=== PATIENT | male | born 1960 | race Caucasian/White ===

== ENCOUNTER 2017-01-02 10:06 | Inpatient (IN) | payer MEDICARE, OTHER ==
[2017-01-02 11:43] LABS: HEMOGLOBIN 14.2 gm/dl (14.0-17.5); RED BLOOD COUNT 4.34 M/UL (4.20-5.50); WHITE BLOOD COUNT 11.6 K/UL (4.5-11.0)
[2017-01-02 12:04] LABS: BUN/CREATININE RATIO 18 (0-10)
[2017-01-02] MEDS ORDERED: VITAMIN D31000 UNIT PO (18:06)
[2017-01-02] MEDS ORDERED: ZETIA10 MG PO (18:06)
[2017-01-02] MEDS ORDERED: MIRALAX17 GM PO (18:07)
[2017-01-02] MEDS ORDERED: PRILOSEC OTC20 MG PO (18:07)
[2017-01-02] MEDS ORDERED: CLARITIN5 MG/5 ML PO (18:08)
[2017-01-02] MEDS ORDERED: LOVASTATIN40 MG PO (18:08)
[2017-01-02] MEDS ORDERED: SYNTHROID50 MCG PO (18:09)
[2017-01-02] MEDS ORDERED: SINEMET 25-1001 EACH PO (18:09)
[2017-01-02] MEDS ORDERED: AMITIZA24 MCG PO (18:10)
[2017-01-02] MEDS ORDERED: [UNRECOGNIZED DRUG - OTHER] (18:11)
[2017-01-02] MEDS ORDERED: MOBIC7.5 MG PO (18:11)
[2017-01-02] MEDS ORDERED: MAGNESIUM CITR296 ML PO (18:12)
[2017-01-02] MEDS ORDERED: DEPAKENE S250 MG/5 M PO (18:13)
[2017-01-02] MEDS ORDERED: VIMPAT10 MG/1 ML PO (18:13)
[2017-01-02] MEDS ORDERED: KLONOPIN TAB 00.5 MG PO (18:14)
[2017-01-02] MEDS ORDERED: MYSOLINE250 MG PO (18:14)
[2017-01-02] MEDS ORDERED: TRAZODONE HCL100 MG PO (18:15)
[2017-01-02] MEDS ORDERED: GEODON60 MG PO (18:15)
[2017-01-02] MEDS ORDERED: PEPTO-BISM262 MG/15 PO (18:16)
[2017-01-02] MEDS ORDERED: NIZORAL 2% SHA120 ML EXT (18:16)
[2017-01-02] MEDS ORDERED: TYLENOL 325MG325 MG PO (18:17)
[2017-01-02 19:04] LABS: HEMOGLOBIN 12.5 gm/dl (14.0-17.5); WHITE BLOOD COUNT 11.6 K/UL (4.5-11.0)
[2017-01-02 19:06] LABS: RED BLOOD COUNT 3.85 M/UL (4.20-5.50)
[2017-01-02 19:24] LABS: BUN/CREATININE RATIO 20 (0-10)
[2017-01-03 05:10] LABS: HEMOGLOBIN 12.1 gm/dl (14.0-17.5); RED BLOOD COUNT 3.82 M/UL (4.20-5.50); WHITE BLOOD COUNT 9.7 K/UL (4.5-11.0)
[2017-01-03 05:30] LABS: BUN/CREATININE RATIO 14 (0-10)
[2017-01-04 07:12] LABS: HEMOGLOBIN 12.7 gm/dl (14.0-17.5); RED BLOOD COUNT 3.93 M/UL (4.20-5.50); WHITE BLOOD COUNT 8.3 K/UL (4.5-11.0)
[2017-01-04 07:50] LABS: BUN/CREATININE RATIO 13 (0-10)
[2017-01-05 08:23] LABS: HEMOGLOBIN 13.5 gm/dl (14.0-17.5); RED BLOOD COUNT 4.18 M/UL (4.20-5.50); WHITE BLOOD COUNT 8.1 K/UL (4.5-11.0)
[2017-01-05 08:42] LABS: BUN/CREATININE RATIO 17 (0-10)
[2017-01-06 07:00] LABS: HEMOGLOBIN 12.4 gm/dl (14.0-17.5); RED BLOOD COUNT 3.82 M/UL (4.20-5.50)
[2017-01-06 07:01] LABS: WHITE BLOOD COUNT 5.5 K/UL (4.5-11.0)
[2017-01-06 07:24] LABS: BUN/CREATININE RATIO 22 (0-10)
[2017-01-06] MEDS ORDERED: CEFTIN250 MG/5 M PO (14:15)
[2017-01-06] MEDS ORDERED: CEFUROXIME500 MG PO (14:42)
== END 2017-01-06 15:42 | disposition home or self-care (01) | DRG 871 ==
LOC: ER1 10:06 → ZEROF 13:35 → M/S 13:35 → CCU 18:13 → M/S 01-03 15:31
PROVIDERS: Emergency Medicine; ADMIT Internal Medicine Infectious Disease
DX: A41.9 Sepsis, unspecified organism (principal); G92 Toxic encephalopathy; N17.9 Acute kidney failure, unspecified; S37.39XA Other injury of urethra, initial encounter; J10.1 Influenza due to other identified influenza virus with other respiratory manifestations; F79 Unspecified intellectual disabilities; T42.4X5A Adverse effect of benzodiazepines, initial encounter; Y92.009 Unspecified place in unspecified non-institutional (private) residence as the place of occurrence of the external cause; G40.909 Epilepsy, unspecified, not intractable, without status epilepticus; E86.0 Dehydration; R09.02 Hypoxemia; J32.9 Chronic sinusitis, unspecified; E03.9 Hypothyroidism, unspecified; X58.XXXA Exposure to other specified factors, initial encounter; Y93.89 Activity, other specified; Y92.230 Patient room in hospital as the place of occurrence of the external cause; E87.6 Hypokalemia; Z88.2 Allergy status to sulfonamides; Z79.1 Long term (current) use of non-steroidal anti-inflammatories (NSAID); Z79.899 Other long term (current) drug therapy; L72.8 Other follicular cysts of the skin and subcutaneous tissue; B96.89 Other specified bacterial agents as the cause of diseases classified elsewhere; F99 Mental disorder, not otherwise specified
CPT/HCPCS: 36415; 36600; 70450; 71010; 80048; 80053; 80202; 80307; 81001; 82550; 82553; 82803; 82962; 83605; 83874; 83880; 84484; 85025; 85027; 85610; 87040; 87070; 87077; 87205; 93005; 94640; 94664; 96365; 96366; 96367; 99285; J0696; J1630; J1650; J2543; J2930; J3370; J3486; J7050; J7070

== ENCOUNTER 2017-01-26 11:02 | Inpatient (IN) | payer MEDICARE, OTHER ==
[~2017-01-26] VITALS: Ht 167.6 cm; Wt 69.9 kg
[~2017-01-26 11:02] MED LIST: AMITIZA24 MCG PO; CEFTIN250 MG/5 M PO; CEFUROXIME500 MG PO; CLARITIN5 MG/5 ML PO; DEPAKENE S250 MG/5 M PO; GEODON60 MG PO; KLONOPIN TAB 00.5 MG PO; LOVASTATIN40 MG PO; MAGNESIUM CITR296 ML PO; MIRALAX17 GM PO; MOBIC7.5 MG PO; MYSOLINE250 MG PO; NIZORAL 2% SHA120 ML EXT; PEPTO-BISM262 MG/15 PO; PRILOSEC OTC20 MG PO; SINEMET 25-1001 EACH PO; SYNTHROID50 MCG PO; TRAZODONE HCL100 MG PO; TYLENOL 325MG325 MG PO; VIMPAT10 MG/1 ML PO; VITAMIN D31000 UNIT PO; ZETIA10 MG PO; [UNRECOGNIZED DRUG - OTHER]
[2017-01-26 14:29] LABS: RED BLOOD COUNT 4.06 M/UL (4.20-5.50)
[2017-01-26 14:45] LABS: BUN/CREATININE RATIO 27 (0-10)
[2017-01-27] MEDS ORDERED: NORCO 5-325 TA1 EACH PO (08:09)
[2017-01-29 06:12] LABS: HEMOGLOBIN 11.2 gm/dl (14.0-17.5)
[2017-01-29 06:25] LABS: RED BLOOD COUNT 3.51 M/UL (4.20-5.50); WHITE BLOOD COUNT 19.9 K/UL (4.5-11.0)
[2017-01-29 06:26] LABS: BUN/CREATININE RATIO 22 (0-10)
[2017-01-30 05:24] LABS: HEMOGLOBIN 11.6 gm/dl (14.0-17.5); RED BLOOD COUNT 3.63 M/UL (4.20-5.50); WHITE BLOOD COUNT 11.9 K/UL (4.5-11.0)
[2017-01-30 05:47] LABS: BUN/CREATININE RATIO 16 (0-10)
[2017-02-05 07:11] LABS: HEMOGLOBIN 12.4 gm/dl (14.0-17.5); RED BLOOD COUNT 3.9 M/UL (4.20-5.50); WHITE BLOOD COUNT 5.1 K/UL (4.5-11.0)
[2017-02-05 07:17] LABS: BUN/CREATININE RATIO 20 (0-10)
== END 2017-02-09 02:07 | DRG 871 ==
LOC: ER1 11:02 → MED SURG 4 21:50 → ZEROF 21:50 → MED SURG 4 01-27 06:31
PROVIDERS: Internal Medicine; Physician Assistant; Specialist/Technologist Athletic Trainer; ADMIT Internal Medicine
DX: A41.51 Sepsis due to Escherichia coli [E. coli] (principal); G93.40 Encephalopathy, unspecified; L03.313 Cellulitis of chest wall; H66.92 Otitis media, unspecified, left ear; G40.409 Other generalized epilepsy and epileptic syndromes, not intractable, without status epilepticus; A49.02 Methicillin resistant Staphylococcus aureus infection, unspecified site; F79 Unspecified intellectual disabilities; E78.5 Hyperlipidemia, unspecified; K21.9 Gastro-esophageal reflux disease without esophagitis; E03.9 Hypothyroidism, unspecified; F91.9 Conduct disorder, unspecified; J30.9 Allergic rhinitis, unspecified; Z98.890 Other specified postprocedural states; Z88.2 Allergy status to sulfonamides; Z79.899 Other long term (current) drug therapy; Z79.1 Long term (current) use of non-steroidal anti-inflammatories (NSAID)
CPT/HCPCS: 36415; 36600; 70450; 70551; 71010; 80048; 80053; 80307; 81001; 82140; 82150; 82550; 82553; 82607; 82803; 83605; 83690; 83874; 84439; 84443; 84484; 85025; 85027; 87040; 87070; 87077; 87086; 87186; 87205; 92526; 92610; 93005; 95816; 96360; 97530; 99285; G0378; G0480; J0696; J1335; J1956; J2060; J2543; J7030; J7050

== ENCOUNTER 2017-02-17 17:37 | Inpatient (IN) | payer MEDICARE, OTHER ==
[~2017-02-17] VITALS: Ht 170.2 cm; Wt 63.5 kg
[~2017-02-17 17:37] MED LIST changes: +NORCO 5-325 TA1 EACH PO
[2017-02-17 18:50] LABS: HEMOGLOBIN 12.7 gm/dl (14.0-17.5); RED BLOOD COUNT 3.97 M/UL (4.20-5.50)
[2017-02-17 19:06] LABS: BUN/CREATININE RATIO 16 (0-10)
[2017-02-18] MEDS ORDERED: VITAMIN D32000 UNI1 PO (01:24)
[2017-02-18] MEDS ORDERED: [UNRECOGNIZED DRUG - CODE] DT (01:27)
[2017-02-18] MEDS ORDERED: PRIMIDONE250 MG PO ×2 (01:29→01:30)
[2017-02-18] MEDS ORDERED: GEODON60 MG PO (01:31)
[2017-02-18] MEDS ORDERED: TRAZODONE HCL100 MG PO (01:32)
[2017-02-18] MEDS ORDERED: NIZORAL 2% CREA15 GM EXT (01:34)
[2017-02-18] MEDS ORDERED: PEPTO-BISM262 MG/15 PO (01:35)
[2017-02-18 13:13] LABS: BUN/CREATININE RATIO 20 (0-10)
[2017-02-19 07:39] LABS: HEMOGLOBIN 12.2 gm/dl (14.0-17.5); RED BLOOD COUNT 3.93 M/UL (4.20-5.50)
[2017-02-19 07:49] LABS: WHITE BLOOD COUNT 4.3 K/UL (4.5-11.0)
[2017-02-19 07:56] LABS: BUN/CREATININE RATIO 20 (0-10)
--- NOTE | 2017-02-20 19:39 | NUR ---
02/20/17 @ 1330 PT UP IN HALLWAY. UNSTEADY GAIT NOTED. PT COMBATIVE WITH NURSING STAFF. MD PRESENT AND AWARE. PT TAKEN BACK TO ROOM BY NSG STAFF AND PT 02/20/17 @ 1350 ATIVAN 2MG GIVEN IV. 02/20/17 @ 1640 PT REMAINS COMBATIVE. MD AWARE. GEODON 10MG GIVEN IM PER MD ORDER. 02/20/17 @ 1730 PT RESTING QUIETLY IN BED. CONTINUES TO SCREAM OUT AT TIMES BUT MUCH CALMER AND NO LONGER COMBATIVE
[2017-02-22 07:11] LABS: HEMOGLOBIN 13.3 gm/dl (14.0-17.5); RED BLOOD COUNT 4.1 M/UL (4.20-5.50); WHITE BLOOD COUNT 5.1 K/UL (4.5-11.0)
[2017-02-22 07:32] LABS: BUN/CREATININE RATIO 18 (0-10)
[2017-02-28 06:43] LABS: HEMOGLOBIN 13.2 gm/dl (14.0-17.5); RED BLOOD COUNT 4.1 M/UL (4.20-5.50)
[2017-02-28 06:55] LABS: BUN/CREATININE RATIO 22 (0-10)
[2017-03-09 06:35] LABS: HEMOGLOBIN 12.5 gm/dl (14.0-17.5); RED BLOOD COUNT 3.86 M/UL (4.20-5.50); WHITE BLOOD COUNT 5.7 K/UL (4.5-11.0)
[2017-03-09 07:05] LABS: BUN/CREATININE RATIO 21 (0-10)
--- NOTE | 2017-03-15 00:46 | NUR ---
03-14-2017 1900 PATIENT REFUSES TO WEAR CATERPILLAR OPERATOR OR PULSE OX MONITOR. ALREADY AWARE.
--- NOTE | 2017-03-21 14:41 | NUR ---
CALLED AND NOTIFIED SANIYA SAWYER BROTHER WHICH IS HIS NEXT OF DAYAN, KARI SAWYER ON 03/21/2017 AT 1441. KARI SAWYER [address] [facility] [address] PHONE [phone]. NOTIED KARI SAWEYR OF SANIYA SAWYER REQUESTING A HAIR CUT AND THAT HE IS PULLING IS HAIR OUT. KARI SAWYER STATES THAT IF SANIYA DOES NOT GET HIS HAIR CUT SHORT THAT HE WILL PULL AND PICK UNTIL IT IS CUT. CONSENT GIVEN FOR [facility] STAFF TO CUT SANIYA SAWYER HAIR SHORT AND TO GIVE HIME A SHAVE. CARLOS CUMMINGS RN
[2017-03-26 05:49] LABS: HEMOGLOBIN 12.5 gm/dl (14.0-17.5); RED BLOOD COUNT 3.91 M/UL (4.20-5.50); WHITE BLOOD COUNT 6.7 K/UL (4.5-11.0)
[2017-03-26 06:10] LABS: BUN/CREATININE RATIO 23 (0-10)
== END 2017-03-30 13:43 | disposition home or self-care (01) | DRG 101 ==
LOC: ER1 17:37 → M/S 20:55 → ZEROF 20:55 → M/S 02-18 01:31 → MED SURG 4 02-19 14:18 → M/S 02-23 18:00
PROVIDERS: Family Medicine; Internal Medicine; Physician Assistant; ADMIT Hospitalist
DX: G40.901 Epilepsy, unspecified, not intractable, with status epilepticus (principal); F73 Profound intellectual disabilities; E87.2 Acidosis; R47.01 Aphasia; F34.9 Persistent mood [affective] disorder, unspecified; R78.81 Bacteremia; F91.8 Other conduct disorders; R45.6 Violent behavior; Z91.14 Patient's other noncompliance with medication regimen; E03.9 Hypothyroidism, unspecified; K21.9 Gastro-esophageal reflux disease without esophagitis; E78.5 Hyperlipidemia, unspecified; Z86.14 Personal history of Methicillin resistant Staphylococcus aureus infection; Z79.899 Other long term (current) drug therapy; Z88.2 Allergy status to sulfonamides; Z79.891 Long term (current) use of opiate analgesic
CPT/HCPCS: 36415; 71010; 80048; 80053; 80076; 80184; 80188; 80299; 82962; 83605; 85025; 85027; 87040; 96374; 96375; 99285; G0378; G0480; J2060; J2250; J3486; J7050

== ENCOUNTER 2021-08-02 23:06 | Emergency (ER) | payer MEDICARE, OTHER ==
[~2021-08-02 23:06] MED LIST changes: +ADVIL200 MG PO; +AUGMENTIN600 MG/5 M PO; -DEPAKENE S250 MG/5 M PO; +DEPAKOTE500 MG PO; +DOXYCYCLINE HY100 MG PO; +GEODON40 MG PO; +IMODIUM CAP 2 MG2 MG PO; +LINZESS145 MCG PO; +MACROBID 100 M100 MG PO; +MILK OF MAGNESI30 ML PO; +NIZORAL 2% CREA15 GM EXT; +OMNICEF 300 MG300 MG PO; +PRIMIDONE250 MG PO; +TAMIFLU 75 MG C75 MG GT; +TESSALON PERLE100 MG PO; +VITAMIN D32000 UNI1 PO; +ZOFRAN4 MG PO; +[UNRECOGNIZED DRUG - CODE] DT
[2021-08-03 02:43] LABS: HEMOGLOBIN 13.7 gm/dl (14.0-17.5); RED BLOOD COUNT 4.21 M/UL (4.20-5.50); WHITE BLOOD COUNT 6.6 K/UL (4.5-11.0)
[2021-08-03 03:08] LABS: BUN/CREATININE RATIO 17 (0-10)
== END 2021-08-03 06:35 | disposition home or self-care (01) ==
LOC: ER1 23:06
PROVIDERS: Family Medicine
DX: F84.0 Autistic disorder (principal); Z72.4 Inappropriate diet and eating habits; Z20.822 Contact with and (suspected) exposure to COVID-19
CPT/HCPCS: 51702; 71045; 80053; 81001; 84439; 84443; 85025; 87086; 99283; U0002

== ENCOUNTER 2022-05-07 11:50 | Emergency (ER) | payer MEDICARE, OTHER ==
[2022-05-07 13:18] LABS: HEMOGLOBIN 14.2 gm/dl (14.0-17.5); RED BLOOD COUNT 4.51 M/UL (4.20-5.50); WHITE BLOOD COUNT 9.3 K/UL (4.5-11.0)
[2022-05-07 13:40] LABS: BUN/CREATININE RATIO 41 (0-10)
== END 2022-05-07 20:30 | disposition home or self-care (01) ==
LOC: ER1 11:50
DX: R53.1 Weakness (principal); I11.9 Hypertensive heart disease without heart failure; Z88.2 Allergy status to sulfonamides
CPT/HCPCS: 71045; 80053; 81001; 85025; 99285; Q9967

== ENCOUNTER 2022-05-14 18:05 | Inpatient (IN) | payer MEDICARE, OTHER ==
[~2022-05-14] VITALS: Ht 172.7 cm; Wt 61.3 kg
[~2022-05-14 18:05] MED LIST changes: +TRAZODONE HCL150 MG PO; -VITAMIN D32000 UNI1 PO; +VITAMIN D350 MCG PO
[2022-05-14 18:43] LABS: HEMOGLOBIN 14.4 gm/dl (14.0-17.5); RED BLOOD COUNT 4.41 M/UL (4.20-5.50); WHITE BLOOD COUNT 15.3 K/UL (4.5-11.0)
[2022-05-14 19:31] LABS: BUN/CREATININE RATIO 46 (0-10)
[2022-05-15 07:31] LABS: HEMOGLOBIN 12.2 gm/dl (14.0-17.5); RED BLOOD COUNT 3.9 M/UL (4.20-5.50); WHITE BLOOD COUNT 9.5 K/UL (4.5-11.0)
[2022-05-15 08:04] LABS: BUN/CREATININE RATIO 50 (0-10)
[2022-05-15] MEDS ORDERED: VIMPAT150 MG PO (11:02)
[2022-05-15] MEDS ORDERED: FUROSEMIDE40 MG PO (11:02)
[2022-05-15] MEDS ORDERED: POTASSIUM CHLO10 ME2 PO (11:02)
[2022-05-15] MEDS ORDERED: CETIRIZINE HCL10 MG PO (11:03)
--- NOTE | 2022-05-15 14:00 | NUR ---
ICE CREAM MIXER ATTEMPTED TO DO AN MRI, STUDY WAS UNSUCCESSFUL, PT NOT TOLERATING LYING STILL, TECH REPORTED PT WAS MOVING AND YELLING
[2022-05-16 03:16] LABS: HEMOGLOBIN 11.7 gm/dl (14.0-17.5); RED BLOOD COUNT 3.66 M/UL (4.20-5.50)
[2022-05-16 03:35] LABS: BUN/CREATININE RATIO 31 (0-10)
[2022-05-17 03:56] LABS: RED BLOOD COUNT 3.71 M/UL (4.20-5.50); WHITE BLOOD COUNT 11.5 K/UL (4.5-11.0)
[2022-05-17 04:23] LABS: BUN/CREATININE RATIO 27 (0-10)
[2022-05-18 04:41] LABS: HEMOGLOBIN 10.7 gm/dl (14.0-17.5); RED BLOOD COUNT 3.33 M/UL (4.20-5.50); WHITE BLOOD COUNT 8.5 K/UL (4.5-11.0)
[2022-05-18 05:11] LABS: BUN/CREATININE RATIO 20 (0-10)
[2022-05-19 07:00] LABS: HEMOGLOBIN 11.1 gm/dl (14.0-17.5); RED BLOOD COUNT 3.46 M/UL (4.20-5.50); WHITE BLOOD COUNT 8.9 K/UL (4.5-11.0)
[2022-05-19 07:29] LABS: BUN/CREATININE RATIO 19 (0-10)
[2022-05-20 05:03] LABS: BUN/CREATININE RATIO 12 (0-10)
[2022-05-20 05:04] LABS: HEMOGLOBIN 9.6 gm/dl (14.0-17.5)
[2022-05-20 05:12] LABS: WHITE BLOOD COUNT 6.1 K/UL (4.5-11.0)
[2022-05-20 05:13] LABS: RED BLOOD COUNT 3.05 M/UL (4.20-5.50)
[2022-05-20 10:14] LABS: PRIMIDONE, SERUM 5.6 ug/mL (5.0-12.0)
[2022-05-22 02:25] LABS: HEMOGLOBIN 10.4 gm/dl (14.0-17.5); RED BLOOD COUNT 3.26 M/UL (4.20-5.50)
[2022-05-22 02:34] LABS: WHITE BLOOD COUNT 7.8 K/UL (4.5-11.0)
[2022-05-22 03:34] LABS: BUN/CREATININE RATIO 13 (0-10)
--- NOTE | 2022-05-23 14:21 | NUR ---
[facility] CATH REMOVED FOR D/C
== END 2022-05-23 14:24 | disposition home health service (06) | DRG 177 ==
LOC: ER1 18:05 → CDU 05-15 00:28 → M/S 05-15 00:28
PROVIDERS: Internal Medicine; Physician Assistant; Surgery; ADMIT Internal Medicine
PROC: 0DH63UZ Insertion of Feeding Device into Stomach, Percutaneous Approach (ICD-10-PCS; principal; 2022-05-19 12:30)
PROC: 0DH63UZ Insertion of Feeding Device into Stomach, Percutaneous Approach (ICD-10-PCS; 2022-05-21)
DX: J69.0 Pneumonitis due to inhalation of food and vomit (principal); G92.8 Other toxic encephalopathy; N39.0 Urinary tract infection, site not specified; E87.1 Hypo-osmolality and hyponatremia; J98.11 Atelectasis; Z20.822 Contact with and (suspected) exposure to COVID-19; G40.909 Epilepsy, unspecified, not intractable, without status epilepticus; E03.9 Hypothyroidism, unspecified; K21.9 Gastro-esophageal reflux disease without esophagitis; E78.5 Hyperlipidemia, unspecified; R53.81 Other malaise; F79 Unspecified intellectual disabilities; R29.810 Facial weakness; R13.10 Dysphagia, unspecified; E86.0 Dehydration; J30.9 Allergic rhinitis, unspecified; K59.00 Constipation, unspecified; E87.6 Hypokalemia; R45.1 Restlessness and agitation; Z98.890 Other specified postprocedural states; Z86.14 Personal history of Methicillin resistant Staphylococcus aureus infection; Z88.2 Allergy status to sulfonamides; Z79.899 Other long term (current) drug therapy
CPT/HCPCS: 0240U; 36415; 36600; 70450; 70496; 70498; 71045; 80048; 80053; 80184; 80188; 80202; 80307; 81001; 82140; 82550; 82553; 82607; 82800; 82803; 83605; 83690; 83735; 84100; 84132; 84439; 84443; 84484; 85025; 85027; 87040; 87086; 92610; 93005; 94640; 94664; 94760; 96361; 96374; 96375; 97162; 97166; 97530-GP-CQ; 99285; G0480; J0692; J1650; J1885; J2060; J2250; J2270; J2405; J2704; J3010; J3370; J3411; J3475; J3480; J3486; J7040; J7070; Q9967